=== PATIENT | female | born 1990 | race Caucasian/White ===

== ENCOUNTER 2019-03-23 12:09 | Emergency (ER) | payer MEDICAID, OTHER ==
[~2019-03-23] VITALS: Ht 160 cm; Wt 66.0 kg
[2019-03-23 13:54] VITALS: BP 102/66
== END 2019-03-23 14:29 | disposition home or self-care (01) ==
LOC: ED 14:14
DX: O20.0 Threatened abortion (principal)
CPT/HCPCS: 36415; 76830; 80048; 81001; 82040; 84702; 85025; 86901; 87086; 99284

== ENCOUNTER 2020-03-03 15:09 | Outpatient (CLI) | payer BC, OTHER ==
[~2020-03-03] VITALS: Ht 167.6 cm; Wt 80.0 kg
[~2020-03-03 15:09] MED LIST: IBUP-1222 PO; OXYC-302 PO; PREN1TAB56 PO; RANI-244 PO
[2020-03-03 15:13] VITALS: BP 105/60
[2020-03-03] MEDS ORDERED: TERBUTALINE 1 MG/ML, 1ML ONE (17:17)
[2020-03-03] MEDS ORDERED: TERBUTALINE 1 MG/ML, 1ML SQ ONE (17:30)
== END 2020-03-03 18:23 | disposition home or self-care (01) ==
LOC: LDOP 15:09
PROVIDERS: ATTEND Obstetrics & Gynecology
DX: O99.89 Other specified diseases and conditions complicating pregnancy, childbirth and the puerperium (principal); N89.8 Other specified noninflammatory disorders of vagina; O62.9 Abnormality of forces of labor, unspecified; Z3A.34 34 weeks gestation of pregnancy
CPT/HCPCS: 59025; 84112; 96372; J3105

== ENCOUNTER → 2020-03-26 | Outpatient (CLI) | payer BC | END | disposition home or self-care (01) | LOC: STAR 12:26 | PROVIDERS: ATTEND Obstetrics & Gynecology | DX: Z01.818 Encounter for other preprocedural examination (principal); Z11.59 Encounter for screening for other viral diseases; N39.3 Stress incontinence (female) (male) | CPT/HCPCS: 36415; 87635 ==

== ENCOUNTER 2020-04-03 05:40 | Inpatient (IN) | payer BC ==
[~2020-04-03] VITALS: Ht 160 cm; Wt 82.0 kg
[2020-04-03] MEDS ORDERED: LACTATED RINGERS 1,000 ML IV SCH (05:41)
[2020-04-03] MEDS ORDERED: OXYTOCIN 30U/ 0.9% NaCL 500ML 500 ML ONE (05:43)
[2020-04-03] MEDS ORDERED: METOCLOPRAMIDE 5 MG/ML, 2ML ONE (05:43)
[2020-04-03] MEDS ORDERED: NEWBORN KIT ONE (05:43)
[2020-04-03] MEDS ORDERED: LACTATED RINGERS 1,000 ML IVBOLUS ONE (06:00)
[2020-04-03] MEDS ORDERED: METOCLOPRAMIDE 5 MG/ML, 2ML IV ONE (06:00)
[2020-04-03] MEDS ORDERED: SODIUM CITRATE/CITRIC ACID 30 ML UDC PO ONE (06:00)
[2020-04-03 06:11] VITALS: BP 134/79
[2020-04-03 06:20] LABS: BASOPHILS # (AUTO) 0.05 x10^3/uL (0-0.1); BASOPHILS % (AUTO) 0 % (0-1); EOSINOPHILS # (AUTO) 0.28 x10^3/uL (0-0.4); EOSINOPHILS % (AUTO) 2 % (1-7); LYMPHOCYTES # (AUTO) 2.68 x10^3/uL (1-3.4); LYMPHOCYTES % (AUTO) 23 % (22-44); MD NO; MEAN CORPUSCULAR HEMOGLOBIN 31.5 pg (27.0-34.8); MEAN CORPUSCULAR HGB CONC 33.9 g/dL (32.4-35.8); MEAN PLATELET VOLUME 7.6 fL (7.4-10.4); MONOCYTES # (AUTO) 1.12 x10^3/uL (0.2-0.8); MONOCYTES % (AUTO) 10 % (2-9); NEUTROPHILS # (AUTO) 7.64 x10^3/uL (1.8-6.8); NEUTROPHILS % (AUTO) 65 % (42-75); PLATELET COUNT 230 x10^3/uL (130-400); RED BLOOD COUNT 4.25 x10^6/uL (3.82-5.3); RED CELL DISTRIBUTION WIDTH 12.7 % (9.6-15.2)
[2020-04-03] MEDS ORDERED: FENTANYL PF 100 MCG/2ML ONE ×2 (07:13→10:50)
[2020-04-03] MEDS ORDERED: CEFAZOLIN 1,000 MG ONE (07:13)
[2020-04-03] MEDS ORDERED: ONDANSETRON 2MG/ML, 2ML ONE (07:13)
[2020-04-03] MEDS ORDERED: OXYTOCIN 10 UNITS/ML, 1ML ONE (07:13)
[2020-04-03] MEDS ORDERED: HYDROmorphone 2 MG/ML, 1ML ONE (07:14)
[2020-04-03] MEDS ORDERED: KETOROLAC 30 MG/1 ML ONE (07:18)
[2020-04-03] MEDS: KETOROLAC 30 MG/1 ML IV SCH ×3 (08:45→21:00)
[2020-04-03] MEDS: LACTATED RINGERS 1,000 ML IV SCH ×4 (08:50→18:50)
[2020-04-03] MEDS ORDERED: BISACODYL 10 MG SUPP PR PRN (09:00)
[2020-04-03] MEDS ORDERED: OXYcodone IR 5MG TABLET PO PRN (09:00)
[2020-04-03] MEDS ORDERED: morphine SULFATE 10 MG/ML, 1ML IV PRN (09:00)
[2020-04-03] MEDS ORDERED: ONDANSETRON 2MG/ML, 2ML IV PRN (09:00)
[2020-04-03] MEDS ORDERED: MISOPROSTOL 200 MCG TABLET PR PRN (09:00)
[2020-04-03] MEDS: OXYTOCIN 30U/ 0.9% NaCL 500ML 500 ML IV SCH ×2 (09:00→18:50)
[2020-04-03] MEDS: PRENATAL VIT/IRON/FA 1 EACH TABLET PO SCH (09:00)
[2020-04-03] MEDS ORDERED: CALCIUM CARBONATE 500 MG TAB.CHEW PO PRN (09:00)
[2020-04-03] MEDS ORDERED: OXYcodone 5 MG/5 ML ORAL.SOL UDC ONE (10:07)
[2020-04-03] MEDS ORDERED: OXYcodone 5 MG/5 ML ORAL.SOL UDC PO PRN (10:30)
[2020-04-03 11:30] VITALS: BP 97/61
[2020-04-03] MEDS: MORPHINE SULFATE 4 MG/ML, 1ML IVPush PRN (13:26)
[2020-04-03] MEDS: ACETAMINOPHEN 325 MG TABLET PO SCH ×2 (15:00→17:28)
[2020-04-03 15:45] VITALS: BP 107/69
[2020-04-03 16:28] LABS: BASOPHILS # (AUTO) 0.04 x10^3/uL (0-0.1); BASOPHILS % (AUTO) 0 % (0-1); EOSINOPHILS # (AUTO) 0.18 x10^3/uL (0-0.4); EOSINOPHILS % (AUTO) 2 % (1-7); LYMPHOCYTES # (AUTO) 2.16 x10^3/uL (1-3.4); LYMPHOCYTES % (AUTO) 18 % (22-44); MD NO; MEAN CORPUSCULAR HEMOGLOBIN 31.7 pg (27.0-34.8); MEAN CORPUSCULAR HGB CONC 34.3 g/dL (32.4-35.8); MEAN CORPUSCULAR VOLUME 92.3 fL (80-100); MEAN PLATELET VOLUME 7.5 fL (7.4-10.4); MONOCYTES # (AUTO) 1.11 x10^3/uL (0.2-0.8); MONOCYTES % (AUTO) 9 % (2-9); NEUTROPHILS # (AUTO) 8.72 x10^3/uL (1.8-6.8); NEUTROPHILS % (AUTO) 71 % (42-75); PLATELET COUNT 162 x10^3/uL (130-400); RED BLOOD COUNT 3.58 x10^6/uL (3.82-5.3); RED CELL DISTRIBUTION WIDTH 12.9 % (9.6-15.2)
[2020-04-03] MEDS: OXYcodone IR 5MG TABLET PO PRN ×2 (17:29→21:42)
[2020-04-03 19:50] VITALS: BP 95/59
[2020-04-03] MEDS: DOCUSATE 100 MG CAPSULE PO PRN (21:00)
[2020-04-04] MEDS: ACETAMINOPHEN 325 MG TABLET PO SCH ×4 (00:12→19:00)
[2020-04-04 00:18] VITALS: BP 101/65
[2020-04-04] MEDS: LACTATED RINGERS 1,000 ML IV SCH ×5 (00:50→16:50)
[2020-04-04] MEDS: OXYcodone IR 5MG TABLET PO PRN ×6 (01:44→23:28)
[2020-04-04] MEDS: MORPHINE SULFATE 4 MG/ML, 1ML IVPush PRN ×2 (02:03→16:48)
[2020-04-04] MEDS: KETOROLAC 30 MG/1 ML IV SCH (03:04)
[2020-04-04 03:51] VITALS: BP 99/63
[2020-04-04] MEDS: OXYTOCIN 30U/ 0.9% NaCL 500ML 500 ML IV SCH ×2 (04:29→14:50)
[2020-04-04 09:00] VITALS: BP 99/62
[2020-04-04] MEDS: PRENATAL VIT/IRON/FA 1 EACH TABLET PO SCH (09:07)
[2020-04-04] MEDS: SIMETHICONE 80 MG CHEW TAB PO PRN (09:07)
[2020-04-04] MEDS: DOCUSATE 100 MG CAPSULE PO PRN ×2 (09:07→19:23)
[2020-04-04] MEDS: IBUPROFEN 600 MG TABLET PO SCH ×3 (09:07→20:54)
[2020-04-04 20:20] VITALS: BP 102/64
[2020-04-05] MEDS: LACTATED RINGERS 1,000 ML IV SCH ×2 (00:50)
[2020-04-05] MEDS: OXYTOCIN 30U/ 0.9% NaCL 500ML 500 ML IV SCH (00:50)
[2020-04-05] MEDS: ACETAMINOPHEN 325 MG TABLET PO SCH ×2 (01:00→07:00)
[2020-04-05] MEDS: IBUPROFEN 600 MG TABLET PO SCH ×2 (03:33→09:56)
[2020-04-05] MEDS: OXYcodone IR 5MG TABLET PO PRN ×3 (03:34→11:55)
[2020-04-05 07:45] VITALS: BP 104/64
[2020-04-05] MEDS: DOCUSATE 100 MG CAPSULE PO PRN (07:50)
[2020-04-05] MEDS: SIMETHICONE 80 MG CHEW TAB PO PRN (07:50)
[2020-04-05] MEDS: PRENATAL VIT/IRON/FA 1 EACH TABLET PO SCH (07:50)
[2020-04-05] MEDS ORDERED: DOCU-131 PO (09:40)
[2020-04-05] MEDS ORDERED: OXYC-302 PO (09:44)
[2020-04-05] MEDS ORDERED: IBUP-1222 PO (09:47)
== END 2020-04-05 13:49 | disposition home or self-care (01) | DRG 784 ==
LOC: LDIP 05:40 → 2NW 11:09
PROVIDERS: ADMIT Obstetrics & Gynecology; ATTEND Obstetrics & Gynecology
PROC: 0UB70ZZ Excision of Bilateral Fallopian Tubes, Open Approach (ICD-10-PCS; principal; 2020-04-03)
PROC: 10D00Z1 Extraction of Products of Conception, Low, Open Approach (ICD-10-PCS; 2020-04-03)
DX: O34.211 Maternal care for low transverse scar from previous cesarean delivery (principal); O99.354 Diseases of the nervous system complicating childbirth; O98.32 Other infections with a predominantly sexual mode of transmission complicating childbirth; F32.9 Major depressive disorder, single episode, unspecified; G43.909 Migraine, unspecified, not intractable, without status migrainosus; O16.4 Unspecified maternal hypertension, complicating childbirth; A60.09 Herpesviral infection of other urogenital tract; O99.344 Other mental disorders complicating childbirth; Z30.2 Encounter for sterilization; Z37.0 Single live birth; Z3A.39 39 weeks gestation of pregnancy; Z80.3 Family history of malignant neoplasm of breast
CPT/HCPCS: 36415; 85025; 86592; 86850; 86900; 88302; G0378; J0690; J1170; J1885; J2405; J3010; J2270; J2590; J2765; J7120

== ENCOUNTER 2020-04-27 10:20 | Emergency (ER) | payer BC ==
[~2020-04-27] VITALS: Ht 160 cm; Wt 72.0 kg
[~2020-04-27 10:20] MED LIST changes: +DOCU-131 PO
[2020-04-27 10:29] VITALS: BP 108/70
--- NOTE | 2020-04-27 11:27 | NUR ---
PT C/O REDDENED AREA ABOVE CSECTION SCAR WITH SITE GAPING OPEN. MD AT BEDSIDE EXPLAINING PLAN OF CARE TO STERI STRIP WOUND AND APPLY ANTIBIOTIC OINTMENT.
--- NOTE | 2020-04-27 11:28 | NUR ---
PT WALKED TO TX DESK. STEADY GAIT.
== END 2020-04-27 11:34 | disposition home or self-care (01) ==
LOC: ED 11:02
DX: T81.30XA Disruption of wound, unspecified, initial encounter (principal); S01.512A Laceration without foreign body of oral cavity, initial encounter; X58.XXXA Exposure to other specified factors, initial encounter; Y93.89 Activity, other specified; Y92.89 Other specified places as the place of occurrence of the external cause; Y99.8 Other external cause status
CPT/HCPCS: 41250; 99283